=== PATIENT | male | born 1950 | race Caucasian/White ===

== ENCOUNTER → 2020-12-13 | Outpatient (REF) | payer OTHER ==
[~2020-12-13] MED LIST: ASPI-1 PO; LISI10TA22 PO; SIMV40TA20 PO
== END ==
LOC: M LAB REF 18:30
PROVIDERS: ATTEND Family Medicine
DX: Z53.9 Procedure and treatment not carried out, unspecified reason (principal); T83.511A Infection and inflammatory reaction due to indwelling urethral catheter, initial encounter

== ENCOUNTER → 2021-05-22 | Outpatient (REF) | payer OTHER, MEDICAID ==
[2021-05-23 11:58] LABS: BLOOD UREA NITROGEN 14 MG/DL (7-18); CALCIUM LEVEL 9.3 MG/DL (8.8-10.2); CARBON DIOXIDE LEVEL 23 MEQ/L (21-32); CHLORIDE LEVEL 107 MEQ/L (98-107); CREATININE FOR GFR 0.99 MG/DL (0.70-1.30); GLOMERULAR FILTRATION RATE > 60.0 (>49); GLUCOSE, FASTING 90 MG/DL (70-100); NT-PRO BNP 540 PG/ML (<125); POTASSIUM SERUM 4.9 MEQ/L (3.5-5.1); SODIUM LEVEL 138 MEQ/L (136-145)
== END ==
LOC: M SFHCCLAY 15:08
PROVIDERS: ATTEND Family Medicine
DX: R60.0 Localized edema (principal)
CPT/HCPCS: 80048; 83880; G0463

== ENCOUNTER → 2021-08-19 | Outpatient (CLI) | payer OTHER, MEDICAID | LOC: M RAD 13:46 | PROVIDERS: ATTEND Internal Medicine Pulmonary Disease | DX: R91.8 Other nonspecific abnormal finding of lung field (principal) ==

== ENCOUNTER → 2021-11-25 | Outpatient (REF) | payer OTHER, MEDICAID | LOC: M SFHCCLAY 15:46 | PROVIDERS: ATTEND Nurse Practitioner Family | DX: R05.9 Cough, unspecified (principal) ==

== ENCOUNTER → 2021-11-25 | Outpatient (CLI) | payer OTHER, MEDICAID | LOC: M CLY 15:36 | PROVIDERS: ATTEND Nurse Practitioner Family | DX: R06.00 Dyspnea, unspecified (principal) ==

== ENCOUNTER 2022-09-21 11:23 | Inpatient (IN) | payer MEDICARE, MEDICAID ==
[~2022-09-21] VITALS: Ht 182.9 cm; Wt 102.0 kg
[2022-09-21] MEDS ORDERED: ACETAMINOPHEN TAB 650MG DOSE (2X325MG) PO PRN (14:00)
[2022-09-21] MEDS ORDERED: ONDANSETRON 4MG TAB PO PRN (14:00)
[2022-09-21] MEDS: COMBIVENT RESPIMAT 100-20MCG INHALER 4GM INH SCH ×2 (14:00→19:59)
[2022-09-21] MEDS ORDERED: BISACODYL 10MG SUPP PR PRN (14:00)
[2022-09-21 14:15] VITALS: BP 117/84
[2022-09-21] MEDS ORDERED: MM S100C PO (15:09)
[2022-09-21] MEDS ORDERED: ATOR40TA75 PO (15:09)
[2022-09-21] MEDS ORDERED: ACET1TAB55 PO (15:09)
[2022-09-21] MEDS ORDERED: TERB250T91 PO (15:09)
[2022-09-21] MEDS ORDERED: ATRO0.063 INH (15:09)
[2022-09-21] MEDS ORDERED: CLOT1CRE71 TOP (15:09)
[2022-09-21] MEDS ORDERED: VENTAER INH (15:09)
[2022-09-21] MEDS ORDERED: XARE20TA PO (15:09)
[2022-09-21] MEDS ORDERED: ASPI81CH33 PO (15:09)
[2022-09-21] MEDS ORDERED: FOLI1TAB11 PO ×2 (15:09→15:13)
[2022-09-21] MEDS ORDERED: FAMO20TA PO (15:13)
[2022-09-21] MEDS ORDERED: ONDA4TAB6 PO (15:13)
[2022-09-21] MEDS ORDERED: MIDO10TA PO (15:13)
[2022-09-21] MEDS ORDERED: LORA-674 PO (15:13)
[2022-09-21] MEDS ORDERED: BENZ-18 PO (15:16)
[2022-09-21] MEDS ORDERED: traMADol 50 MG TAB PO PRN (15:25)
[2022-09-21] MEDS ORDERED: HOME MED LIST COMPLETE! XX SCH (15:25)
[2022-09-21] MEDS: MIDODRINE 5 MG TAB PO SCH (15:54)
[2022-09-21] MEDS: ACETAMINOPHEN 500 MG TAB PO SCH ×2 (15:54→20:08)
[2022-09-21] MEDS: REMEDY PHYTOPLEX Z-GUARD PASTE 113GM TUBE (FROM STOREROOM PRODUCT) TOP SCH ×2 (16:00→20:24)
[2022-09-21] MEDS: SALIVA SUBSTITUTE(MOUTHKOTE) BTL MT SCH ×2 (17:00→20:09)
[2022-09-21] MEDS ORDERED: NS 1,000 ML IV ONE (17:20)
[2022-09-21] MEDS: MAGIC MOUTHWASH SUSPENSION BTL SSP SCH (17:30)
[2022-09-21] MEDS ORDERED: traZODone 25MG PER 1/2 TABLET PO PRN (17:45)
[2022-09-21 20:00] VITALS: BP 108/70
[2022-09-21] MEDS: RIVAROXABAN 20MG TAB (XARELTO) PO SCH (20:04)
[2022-09-21] MEDS: ATORVASTATIN 20 MG TAB PO SCH (20:06)
[2022-09-21] MEDS: guaiFENesin 200 MG TAB PO SCH (20:06)
[2022-09-21] MEDS: DOCUSATE SODIUM 100MG CAPSULE PO SCH (20:06)
[2022-09-21] MEDS: PANTOPRAZOLE 40MG TAB (PROTONIX) PO SCH (20:06)
[2022-09-21] MEDS: SENNA 8.6 MG TAB (SENOKOT) PO SCH (20:09)
[2022-09-21 20:54] LABS: VENOUS HCO3 23.7 MEQ/L (23.0-27.0); VENOUS O2 SATURATION 73.6 % (60.0-80.0); VENOUS PH 7.449 UNITS (7.330-7.430); VENOUS STANDARD HCO3 24.1 MEQ/L; VENOUS TOTAL CO2 24.8 MEQ/L (24.0-28.0)
[2022-09-21 20:59] LABS: HEMATOCRIT 25.9 % (42.0-52.0); HEMOGLOBIN 8.3 g/dl (13.5-17.5); MEAN CORPUSCULAR HEMOGLOBIN 35.2 pg (27.0-33.0); MEAN CORPUSCULAR VOLUME 109.7 fl (80.0-96.0); PLATELET COUNT, AUTOMATED 181 10^3/uL (150-450); RED BLOOD COUNT 2.36 10^6/uL (4.30-6.10); WHITE BLOOD COUNT 7.4 10^3/uL (4.0-10.0)
[2022-09-21 21:23] LABS: BLOOD UREA NITROGEN 9 MG/DL (9-23); CALCIUM LEVEL 7.2 MG/DL (8.3-10.6); CARBON DIOXIDE LEVEL 23 MMOL/L (20-31); CHLORIDE LEVEL 105 MMOL/L (98-107); CREATININE FOR GFR 0.65 MG/DL (0.70-1.30); GLOMERULAR FILTRATION RATE > 60.0 (>42); GLUCOSE, FASTING 103 MG/DL (74-106); POTASSIUM SERUM 3.5 MMOL/L (3.5-5.1); SODIUM LEVEL 138 MMOL/L (136-145)
[2022-09-21 21:40] LABS: ATYPICAL LYMPH 14 % (0-5); EOSINOPHILS 2 % (0-3); LYMPHOCYTES 26 % (16-44); NEUTROPHILS 56 % (28-66)
[2022-09-21 21:41] LABS: ANISOCYTOSIS 1+; HYPOCHROMASIA 1+
[2022-09-21 21:42] LABS: PLATELET ESTIMATE NORMAL (NORMAL)
[2022-09-22 05:49] LABS: BASO % 0.2 % (0.0-1.0); EOS % 0.4 % (0.0-3.0); HEMATOCRIT 27.3 % (42.0-52.0); HEMOGLOBIN 8.5 g/dl (13.5-17.5); LYMPH # 1.5 10^3/uL (1.5-5.0); LYMPH % 18.4 % (24.0-44.0); MEAN CORPUSCULAR HEMOGLOBIN 34.4 pg (27.0-33.0); MEAN CORPUSCULAR HGB CONC 31.1 g/dl (32.0-36.5); MEAN CORPUSCULAR VOLUME 110.5 fl (80.0-96.0); MONO # 0.5 10^3/uL (0.0-0.8); MONO % 6.2 % (2.0-8.0); NEUTROPHILS % 74.3 % (36.0-66.0); PLATELET COUNT, AUTOMATED 199 10^3/uL (150-450); RED BLOOD COUNT 2.47 10^6/uL (4.30-6.10)
[2022-09-22 05:57] VITALS: BP 113/67
[2022-09-22] MEDS ORDERED: DOXYCYCLINE HYCLATE 100MG TABLET PO SCH (06:00)
[2022-09-22 06:15] LABS: ALBUMIN 2.1 G/DL (3.2-5.2); ALKALINE PHOSPHATASE 70 U/L (46-116); ALT/SGPT 47 U/L (7.0-40); AST/SGOT 30 U/L (<34); BILIRUBIN,TOTAL 0.9 MG/DL (0.3-1.2); BLOOD UREA NITROGEN 9 MG/DL (9-23); CALCIUM LEVEL 7.7 MG/DL (8.3-10.6); CARBON DIOXIDE LEVEL 24 MMOL/L (20-31); CHLORIDE LEVEL 102 MMOL/L (98-107); CREATININE FOR GFR 0.72 MG/DL (0.70-1.30); GLOMERULAR FILTRATION RATE > 60.0 (>42); GLUCOSE, FASTING 90 MG/DL (74-106); POTASSIUM SERUM 3.7 MMOL/L (3.5-5.1); SODIUM LEVEL 135 MMOL/L (136-145); TOTAL PROTEIN 7.4 G/DL (5.7-8.2)
[2022-09-22] MEDS: COMBIVENT RESPIMAT 100-20MCG INHALER 4GM INH SCH ×3 (07:33→20:15)
[2022-09-22] MEDS: LORATADINE 10 MG TAB PO SCH (09:41)
[2022-09-22] MEDS: guaiFENesin 200 MG TAB PO SCH ×2 (09:41→21:00)
[2022-09-22] MEDS: cefTRIAXone SOD 2 GM in D5W MINI-BAG PLUS 50 ML IV SCH (09:41)
[2022-09-22] MEDS: MIDODRINE 5 MG TAB PO SCH ×3 (09:42→16:59)
[2022-09-22] MEDS: ASPIRIN 81MG ENTERIC TABLET PO SCH (09:42)
[2022-09-22] MEDS: DOCUSATE SODIUM 100MG CAPSULE PO SCH ×2 (09:42→21:00)
[2022-09-22] MEDS: FOLIC ACID 1MG TAB PO SCH (09:42)
[2022-09-22] MEDS: PANTOPRAZOLE 40MG TAB (PROTONIX) PO SCH ×2 (09:42→21:00)
[2022-09-22] MEDS: SALIVA SUBSTITUTE(MOUTHKOTE) BTL MT SCH ×4 (09:45→21:54)
[2022-09-22] MEDS: MAGIC MOUTHWASH SUSPENSION BTL SSP SCH ×3 (09:47→17:00)
[2022-09-22] MEDS: ACETAMINOPHEN 500 MG TAB PO SCH ×3 (09:49→21:00)
[2022-09-22] MEDS: REMEDY PHYTOPLEX Z-GUARD PASTE 113GM TUBE (FROM STOREROOM PRODUCT) TOP SCH ×3 (09:49→21:55)
[2022-09-22] MEDS ORDERED: SODIUM CHLORIDE 0.9% INJ 10 ML SYR IV PRN (11:50)
[2022-09-22 14:00] VITALS: BP 130/77
[2022-09-22] MEDS: RIVAROXABAN 20MG TAB (XARELTO) PO SCH (18:09)
[2022-09-22] MEDS: SODIUM CHLORIDE 0.9% INJ 10 ML SYR IV SCH (18:10)
[2022-09-22 20:00] VITALS: BP 143/78
[2022-09-22] MEDS: ATORVASTATIN 20 MG TAB PO SCH (21:00)
[2022-09-22] MEDS ORDERED: ACETAMINOPHEN 1000MG 100ML IV BAG IV ONE (21:00)
[2022-09-22] MEDS: SENNA 8.6 MG TAB (SENOKOT) PO SCH (21:00)
[2022-09-22 21:30] LABS: ABG BASE EXCESS -0.1 (-2.0-2.0); ABG HCO3 22.2 MEQ/L (22.0-26.0); ABG O2 SATURATION 93.9 % (95.0-99.0); ABG PARTIAL PRESSURE O2 67.4 mmHg (75.0-100.0); ABG STANDARD HCO3 24.4 MEQ/L (22.0-26.0); ABG TOTAL CO2 23.1 MEQ/L (23.0-31.0); ABG pH (ARTERIAL) 7.517 UNITS (7.350-7.450)
[2022-09-22 22:03] LABS: BASO % 0.2 % (0.0-1.0); EOS % 0.1 % (0.0-3.0); HEMATOCRIT 26.3 % (42.0-52.0); HEMOGLOBIN 8.7 g/dl (13.5-17.5); LYMPH # 1.4 10^3/uL (1.5-5.0); LYMPH % 16.9 % (24.0-44.0); MEAN CORPUSCULAR HEMOGLOBIN 37.3 pg (27.0-33.0); MEAN CORPUSCULAR HGB CONC 33.1 g/dl (32.0-36.5); MEAN CORPUSCULAR VOLUME 112.9 fl (80.0-96.0); MONO # 0.5 10^3/uL (0.0-0.8); MONO % 6.5 % (2.0-8.0); NEUTROPHILS # 6.2 10^3/uL (1.5-8.5); NEUTROPHILS % 75.8 % (36.0-66.0); PLATELET COUNT, AUTOMATED 195 10^3/uL (150-450); RED BLOOD COUNT 2.33 10^6/uL (4.30-6.10); WHITE BLOOD COUNT 8.2 10^3/uL (4.0-10.0)
[2022-09-22 22:23] LABS: BLOOD UREA NITROGEN 10 MG/DL (9-23); CALCIUM LEVEL 7.9 MG/DL (8.3-10.6); CARBON DIOXIDE LEVEL 23 MMOL/L (20-31); CHLORIDE LEVEL 103 MMOL/L (98-107); CREATININE FOR GFR 0.78 MG/DL (0.70-1.30); GLOMERULAR FILTRATION RATE > 60.0 (>42); GLUCOSE, FASTING 99 MG/DL (74-106); SODIUM LEVEL 134 MMOL/L (136-145)
[2022-09-22 23:00] VITALS: BP 105/66
[2022-09-22 23:50] VITALS: BP 123/68
[2022-09-23] MEDS ORDERED: NS 1,000 ML IV SCH
[2022-09-23 01:21] LABS: RSV AMPLIFICATION NEGATIVE (NEGATIVE)
[2022-09-23 04:32] LABS: HEMATOCRIT 25.1 % (42.0-52.0); HEMOGLOBIN 8.1 g/dl (13.5-17.5); MEAN CORPUSCULAR HGB CONC 32.3 g/dl (32.0-36.5); MEAN CORPUSCULAR VOLUME 111.6 fl (80.0-96.0); PLATELET COUNT, AUTOMATED 202 10^3/uL (150-450); RED BLOOD COUNT 2.25 10^6/uL (4.30-6.10); WHITE BLOOD COUNT 7.7 10^3/uL (4.0-10.0)
[2022-09-23 04:57] LABS: BLOOD UREA NITROGEN 9 MG/DL (9-23); CALCIUM LEVEL 7.6 MG/DL (8.3-10.6); CARBON DIOXIDE LEVEL 20 MMOL/L (20-31); CHLORIDE LEVEL 103 MMOL/L (98-107); CREATININE FOR GFR 0.78 MG/DL (0.70-1.30); GLOMERULAR FILTRATION RATE > 60.0 (>42); GLUCOSE, FASTING 85 MG/DL (74-106); POTASSIUM SERUM 4.1 MMOL/L (3.5-5.1); SODIUM LEVEL 134 MMOL/L (136-145)
[2022-09-23 05:04] LABS: ATYPICAL LYMPH 15 % (0-5); LYMPHOCYTES 16 % (16-44); MONOCYTES 7 % (0-5); NEUTROPHILS 62 % (28-66)
[2022-09-23 05:05] LABS: PLATELET ESTIMATE NORMAL (NORMAL)
[2022-09-23] MEDS: SODIUM CHLORIDE 0.9% INJ 10 ML SYR IV SCH (05:33)
[2022-09-23 06:00] VITALS: BP 106/60
[2022-09-23] MEDS ORDERED: ACETAMINOPHEN 1000MG 100ML IV BAG IV ONE (06:00)
[2022-09-23] MEDS: COMBIVENT RESPIMAT 100-20MCG INHALER 4GM INH SCH (07:23)
[2022-09-23 07:52] VITALS: BP 108/65
[2022-09-23] MEDS: ACETAMINOPHEN 500 MG TAB PO SCH (08:27)
[2022-09-23] MEDS: MIDODRINE 5 MG TAB PO SCH ×2 (08:30→14:05)
[2022-09-23] MEDS: PANTOPRAZOLE 40MG TAB (PROTONIX) PO SCH (08:32)
[2022-09-23] MEDS: ASPIRIN 81MG ENTERIC TABLET PO SCH (08:33)
[2022-09-23] MEDS: MAGIC MOUTHWASH SUSPENSION BTL SSP SCH ×2 (08:33→14:06)
[2022-09-23] MEDS: guaiFENesin 200 MG TAB PO SCH (08:33)
[2022-09-23] MEDS: LORATADINE 10 MG TAB PO SCH (08:33)
[2022-09-23] MEDS: DOCUSATE SODIUM 100MG CAPSULE PO SCH (08:33)
[2022-09-23] MEDS: SALIVA SUBSTITUTE(MOUTHKOTE) BTL MT SCH ×2 (08:33→14:06)
[2022-09-23] MEDS: FOLIC ACID 1MG TAB PO SCH (08:34)
[2022-09-23] MEDS: cefTRIAXone SOD 2 GM in D5W MINI-BAG PLUS 50 ML IV SCH (08:34)
[2022-09-23] MEDS: REMEDY PHYTOPLEX Z-GUARD PASTE 113GM TUBE (FROM STOREROOM PRODUCT) TOP SCH (08:35)
[2022-09-23] MEDS ORDERED: ISOVUE-370 76% 100ML VIAL As Ordered ONE (10:54)
[2022-09-24 16:10] LABS: BODY FLUID CULTURE Not indicated. (.); LEGIONELLA ANTIGEN URINE Negative (Negative); ORGANISM ID Not indicated. (.); SPECIMEN SOURCE Urine (.); URINE STREP PNEUMONIAE ANTIGEN Negative (Negative)
== END 2022-09-23 14:30 | disposition short-term general hospital (02) | DRG 57 ==
LOC: M PM&R 14:11
PROVIDERS: ADMIT Physical Medicine & Rehabilitation; ATTEND Physical Medicine & Rehabilitation
DX: I69.354 Hemiplegia and hemiparesis following cerebral infarction affecting left non-dominant side (principal); I38 Endocarditis, valve unspecified; E87.1 Hypo-osmolality and hyponatremia; I48.0 Paroxysmal atrial fibrillation; I10 Essential (primary) hypertension; E78.5 Hyperlipidemia, unspecified; D63.8 Anemia in other chronic diseases classified elsewhere; J44.9 Chronic obstructive pulmonary disease, unspecified; I25.10 Atherosclerotic heart disease of native coronary artery without angina pectoris; Z74.09 Other reduced mobility; R50.9 Fever, unspecified; E83.51 Hypocalcemia; Z74.1 Need for assistance with personal care; R51.9 Headache, unspecified; R53.81 Other malaise; Z79.01 Long term (current) use of anticoagulants; Z79.82 Long term (current) use of aspirin; Z79.899 Other long term (current) drug therapy; Z95.0 Presence of cardiac pacemaker; I25.2 Old myocardial infarction; Z86.16 Personal history of COVID-19; Z90.49 Acquired absence of other specified parts of digestive tract; Z87.891 Personal history of nicotine dependence; Z86.718 Personal history of other venous thrombosis and embolism

== ENCOUNTER 2022-09-23 12:38 | Inpatient (IN) | payer MEDICARE, MEDICAID ==
[~2022-09-23] VITALS: Ht 182.9 cm; Wt 98.4 kg
[~2022-09-23 12:38] MED LIST changes: +ACET1TAB55 PO; +ASPI81CH33 PO; +ATOR40TA75 PO; +ATRO0.063 INH; +BENZ-18 PO; +CLOT1CRE71 TOP; +FAMO20TA PO; +FOLI1TAB11 PO; +LORA-674 PO; +MIDO10TA PO; +MM S100C PO; +ONDA4TAB6 PO; +TERB250T91 PO; +VENTAER INH; +XARE20TA PO
[2022-09-23 15:00] VITALS: BP 136/79
[2022-09-23] MEDS ORDERED: HOME MED LIST COMPLETE! XX SCH (15:50)
[2022-09-23 16:00] VITALS: BP 119/83
[2022-09-23] MEDS ORDERED: ALBUTEROL 90 MCG/ACT 8GM HFA INHALER INH PRN (16:40)
[2022-09-23] MEDS ORDERED: BENZONATATE 100MG CAPSULE PO PRN (16:40)
[2022-09-23] MEDS ORDERED: ONDANSETRON 4MG ORAL DISINTEGRATING TAB PO PRN (16:40)
[2022-09-23 17:11] LABS: PERCENT SATURATION 65.9 % (19.7-50.0)
[2022-09-23 17:13] LABS: FERRITIN 508.3 NG/ML (10.5-307.3)
[2022-09-23 17:18] LABS: FOLATE 21.79 NG/ML (>5.4)
[2022-09-23] MEDS: MIDODRINE 5 MG TAB PO SCH (17:37)
[2022-09-23] MEDS ORDERED: RIVAROXABAN 20MG TAB (XARELTO) PO SCH (18:00)
[2022-09-23] MEDS: IPRATROPIUM HFA INHALER 12.9 GRAMS (ATROVENT HFA) INH SCH (19:08)
[2022-09-23 20:00] VITALS: BP 120/60
[2022-09-23] MEDS: FAMOTIDINE 20 MG TAB PO SCH (20:11)
[2022-09-23] MEDS: ATORVASTATIN 20 MG TAB PO SCH (20:11)
[2022-09-23] MEDS: ACETAMINOPHEN 325 MG TAB PO PRN (20:12)
[2022-09-24] VITALS (7 sets, daily range): BP systolic 99–129; BP diastolic 58–81
[2022-09-24] MEDS: IPRATROPIUM HFA INHALER 12.9 GRAMS (ATROVENT HFA) INH SCH ×7 (04:00→23:25)
[2022-09-24 05:31] LABS: BASO % 0.4 % (0.0-1.0); EOS # 0.1 10^3/uL (0.0-0.5); EOS % 1.2 % (0.0-3.0); HEMATOCRIT 25.9 % (42.0-52.0); HEMOGLOBIN 8.4 g/dl (13.5-17.5); LYMPH # 1.3 10^3/uL (1.5-5.0); LYMPH % 16.6 % (24.0-44.0); MEAN CORPUSCULAR HEMOGLOBIN 35.4 pg (27.0-33.0); MEAN CORPUSCULAR HGB CONC 32.4 g/dl (32.0-36.5); MEAN CORPUSCULAR VOLUME 109.3 fl (80.0-96.0); MONO # 0.5 10^3/uL (0.0-0.8); NEUTROPHILS # 5.8 10^3/uL (1.5-8.5); NEUTROPHILS % 75.4 % (36.0-66.0); PLATELET COUNT, AUTOMATED 206 10^3/uL (150-450); RED BLOOD COUNT 2.37 10^6/uL (4.30-6.10); WHITE BLOOD COUNT 7.6 10^3/uL (4.0-10.0)
[2022-09-24 06:27] LABS: ALKALINE PHOSPHATASE 63 U/L (46-116); ALT/SGPT 48 U/L (7.0-40); AST/SGOT 43 U/L (<34); BILIRUBIN,TOTAL 0.8 MG/DL (0.3-1.2); BLOOD UREA NITROGEN 9 MG/DL (9-23); CALCIUM LEVEL 7.9 MG/DL (8.3-10.6); CARBON DIOXIDE LEVEL 23 MMOL/L (20-31); CHLORIDE LEVEL 104 MMOL/L (98-107); CREATININE FOR GFR 0.72 MG/DL (0.70-1.30); GLOMERULAR FILTRATION RATE > 60.0 (>42); GLUCOSE, FASTING 85 MG/DL (74-106); MAGNESIUM LEVEL 1.7 MG/DL (1.8-2.4); POTASSIUM SERUM 3.8 MMOL/L (3.5-5.1); SODIUM LEVEL 135 MMOL/L (136-145)
[2022-09-24] MEDS: MAG SULF 1GM/100ML (MAG RUN) 1 GM in IV 1 EA IV SCH ×2 (08:36→09:00)
[2022-09-24] MEDS: cefTRIAXone SOD 2 GM in D5W MINI-BAG PLUS 50 ML IV SCH (08:36)
[2022-09-24] MEDS: LORATADINE 10 MG TAB PO SCH (08:37)
[2022-09-24] MEDS: FOLIC ACID 1MG TAB PO SCH (08:38)
[2022-09-24] MEDS: FAMOTIDINE 20 MG TAB PO SCH ×2 (08:38→20:04)
[2022-09-24] MEDS: MIDODRINE 5 MG TAB PO SCH ×3 (08:38→16:48)
[2022-09-24] MEDS: DOCUSATE SODIUM 100MG CAPSULE PO SCH (08:38)
[2022-09-24] MEDS ORDERED: ASPIRIN 81MG CHEW TABLET PO SCH (09:00)
[2022-09-24] MEDS: ACETAMINOPHEN 325 MG TAB PO PRN (12:19)
[2022-09-24] MEDS: ENOXAPARIN 100MG/1ML SYRINGE (J1650 PER 10MG) SC SCH ×2 (16:49→18:12)
[2022-09-24] MEDS ORDERED: ISOVUE-370 76% 100ML VIAL As Ordered ONE (18:03)
[2022-09-24] MEDS: ATORVASTATIN 20 MG TAB PO SCH (20:04)
[2022-09-24] MEDS: DOXYCYCLINE HYCLATE 100MG TABLET PO SCH (23:21)
[2022-09-25] VITALS (8 sets, daily range): BP systolic 103–142; BP diastolic 60–88
[2022-09-25] MEDS: IPRATROPIUM HFA INHALER 12.9 GRAMS (ATROVENT HFA) INH SCH ×6 (03:37→23:28)
[2022-09-25] MEDS: ENOXAPARIN 100MG/1ML SYRINGE (J1650 PER 10MG) SC SCH ×2 (05:14→16:57)
[2022-09-25 07:30] LABS: BASO % 0.4 % (0.0-1.0); EOS % 0.2 % (0.0-3.0); HEMATOCRIT 26.2 % (42.0-52.0); HEMOGLOBIN 9.4 g/dl (13.5-17.5); LYMPH # 1.5 10^3/uL (1.5-5.0); LYMPH % 18.3 % (24.0-44.0); MEAN CORPUSCULAR HEMOGLOBIN 39.7 pg (27.0-33.0); MEAN CORPUSCULAR HGB CONC 35.9 g/dl (32.0-36.5); MEAN CORPUSCULAR VOLUME 110.5 fl (80.0-96.0); MONO # 0.5 10^3/uL (0.0-0.8); MONO % 6.7 % (2.0-8.0); NEUTROPHILS % 73.8 % (36.0-66.0); PLATELET COUNT, AUTOMATED 223 10^3/uL (150-450); RED BLOOD COUNT 2.37 10^6/uL (4.30-6.10); WHITE BLOOD COUNT 8.1 10^3/uL (4.0-10.0)
[2022-09-25 08:18] LABS: ERYTHROCYTE SEDIMENTATION RATE 52 mm/hr (0-20)
[2022-09-25] MEDS: FOLIC ACID 1MG TAB PO SCH (08:18)
[2022-09-25] MEDS: cefTRIAXone SOD 2 GM in D5W MINI-BAG PLUS 50 ML IV SCH (08:18)
[2022-09-25] MEDS: FAMOTIDINE 20 MG TAB PO SCH ×2 (08:18→21:58)
[2022-09-25] MEDS: DOXYCYCLINE HYCLATE 100MG TABLET PO SCH ×2 (08:19→21:58)
[2022-09-25] MEDS: MIDODRINE 5 MG TAB PO SCH ×4 (08:19→16:57)
[2022-09-25] MEDS: LORATADINE 10 MG TAB PO SCH (08:19)
[2022-09-25 08:22] LABS: BLOOD UREA NITROGEN 6 MG/DL (9-23); CALCIUM LEVEL 7.7 MG/DL (8.3-10.6); CARBON DIOXIDE LEVEL 22 MMOL/L (20-31); CHLORIDE LEVEL 102 MMOL/L (98-107); CREATININE FOR GFR 0.64 MG/DL (0.70-1.30); GLOMERULAR FILTRATION RATE > 60.0 (>42); GLUCOSE, FASTING 92 MG/DL (74-106); MAGNESIUM LEVEL 1.9 MG/DL (1.8-2.4); POTASSIUM SERUM 4.2 MMOL/L (3.5-5.1); SODIUM LEVEL 133 MMOL/L (136-145)
[2022-09-25] MEDS: DOCUSATE SODIUM 100MG CAPSULE PO SCH (09:00)
[2022-09-25] MEDS: ACETAMINOPHEN 325 MG TAB PO PRN (11:11)
[2022-09-25] MEDS: ATORVASTATIN 20 MG TAB PO SCH (21:58)
[2022-09-26] MEDS: IPRATROPIUM HFA INHALER 12.9 GRAMS (ATROVENT HFA) INH SCH ×2 (04:00→07:36)
[2022-09-26 04:13] VITALS: BP 119/75
[2022-09-26] MEDS: ENOXAPARIN 100MG/1ML SYRINGE (J1650 PER 10MG) SC SCH (05:43)
[2022-09-26 08:00] VITALS: BP 98/55
== END 2022-09-26 08:54 | disposition short-term general hospital (02) | DRG 288 ==
LOC: M ICU 12:39 → M PCU 09-24 09:30
PROVIDERS: ADMIT Internal Medicine; ATTEND Internal Medicine
PROC: B246ZZZ Ultrasonography of Right and Left Heart (ICD-10-PCS; principal; 2022-09-23)
DX: I33.0 Acute and subacute infective endocarditis (principal); G93.41 Metabolic encephalopathy; G93.6 Cerebral edema; J18.9 Pneumonia, unspecified organism; I69.354 Hemiplegia and hemiparesis following cerebral infarction affecting left non-dominant side; J96.11 Chronic respiratory failure with hypoxia; I48.20 Chronic atrial fibrillation, unspecified; I48.0 Paroxysmal atrial fibrillation; I25.10 Atherosclerotic heart disease of native coronary artery without angina pectoris; J44.9 Chronic obstructive pulmonary disease, unspecified; E78.5 Hyperlipidemia, unspecified; I10 Essential (primary) hypertension; D53.9 Nutritional anemia, unspecified; E78.00 Pure hypercholesterolemia, unspecified; I95.9 Hypotension, unspecified; I25.2 Old myocardial infarction; Z86.718 Personal history of other venous thrombosis and embolism; Z95.0 Presence of cardiac pacemaker; Z87.891 Personal history of nicotine dependence; Z79.82 Long term (current) use of aspirin; Z95.5 Presence of coronary angioplasty implant and graft; Z79.01 Long term (current) use of anticoagulants; Z79.899 Other long term (current) drug therapy

== ENCOUNTER → 2022-10-14 | Outpatient (REF) | payer MEDICARE, MEDICAID ==
[2022-10-14 17:52] LABS: ALBUMIN 2.6 G/DL (3.2-5.2); ALKALINE PHOSPHATASE 98 U/L (46-116); ALT/SGPT 31 U/L (7.0-40); AST/SGOT 28 U/L (<34); BILIRUBIN,TOTAL 0.9 MG/DL (0.3-1.2); BLOOD UREA NITROGEN 7 MG/DL (9-23); CALCIUM LEVEL 8.7 MG/DL (8.3-10.6); CARBON DIOXIDE LEVEL 21 MMOL/L (20-31); CHLORIDE LEVEL 103 MMOL/L (98-107); CREATININE FOR GFR 0.78 MG/DL (0.70-1.30); GLOMERULAR FILTRATION RATE > 60.0 (>42); GLUCOSE, FASTING 84 MG/DL (74-106); POTASSIUM SERUM 4.1 MMOL/L (3.5-5.1); SODIUM LEVEL 135 MMOL/L (136-145); TOTAL PROTEIN 8.4 G/DL (5.7-8.2)
[2022-10-14 18:10] LABS: BASO % 0.4 % (0.0-1.0); EOS # 0.1 10^3/uL (0.0-0.5); EOS % 1.2 % (0.0-3.0); HEMATOCRIT 34.6 % (42.0-52.0); LYMPH # 1.7 10^3/uL (1.5-5.0); LYMPH % 25.3 % (24.0-44.0); MEAN CORPUSCULAR HEMOGLOBIN 34.7 pg (27.0-33.0); MEAN CORPUSCULAR HGB CONC 30.9 g/dl (32.0-36.5); MEAN CORPUSCULAR VOLUME 112.3 fl (80.0-96.0); MONO # 0.5 10^3/uL (0.0-0.8); MONO % 7.6 % (2.0-8.0); NEUTROPHILS # 4.4 10^3/uL (1.5-8.5); NEUTROPHILS % 65.1 % (36.0-66.0); PLATELET COUNT, AUTOMATED 217 10^3/uL (150-450); RED BLOOD COUNT 3.08 10^6/uL (4.30-6.10); WHITE BLOOD COUNT 6.8 10^3/uL (4.0-10.0)
[2022-10-14 18:13] LABS: HEMOGLOBIN 10.7 g/dl (13.5-17.5)
== END ==
LOC: M SFHCCLAY 14:54
PROVIDERS: ATTEND Nurse Practitioner Family
DX: I33.0 Acute and subacute infective endocarditis (principal); I95.9 Hypotension, unspecified

== ENCOUNTER → 2023-08-11 | Outpatient (CLI) | payer MEDICARE, MEDICAID ==
[~2023-08-11] MED LIST changes: +LORA-1041 PO; -LORA-674 PO
== END ==
LOC: M CLY 13:43
PROVIDERS: ATTEND Physician Assistant
DX: I27.20 Pulmonary hypertension, unspecified (principal)

== ENCOUNTER → 2023-08-11 | Outpatient (CLI) | payer MEDICARE, MEDICAID | LOC: M CLY 14:25 | PROVIDERS: ATTEND Physician Assistant | DX: B34.9 Viral infection, unspecified (principal) ==

== ENCOUNTER → 2024-01-13 | Outpatient (REF) | payer MEDICARE, MEDICAID ==
[~2024-01-13] MED LIST changes: +ONDA-282 PO; -ONDA4TAB6 PO
[2024-01-13 17:53] LABS: ALBUMIN 3.5 G/DL (3.2-5.2); ALKALINE PHOSPHATASE 113 U/L (46-116); ALT/SGPT 27 U/L (7.0-40); AST/SGOT 25 U/L (<34); BILIRUBIN,TOTAL 2.9 MG/DL (0.3-1.2); BLOOD UREA NITROGEN 17 MG/DL (9-23); CALCIUM LEVEL 9.3 MG/DL (8.3-10.6); CARBON DIOXIDE LEVEL 21 MMOL/L (20-31); CHLORIDE LEVEL 109 MMOL/L (98-107); CHOLESTEROL LEVEL 110 MG/DL (<200); CHOLESTEROL RISK RATIO 4.58 (<5); CREATININE FOR GFR 0.95 MG/DL (0.70-1.30); GLOMERULAR FILTRATION RATE > 60.0 (>42); GLUCOSE, FASTING 84 MG/DL (74-106); LDL CHOLESTEROL 52.2 MG/DL (<100); POTASSIUM SERUM 4.5 MMOL/L (3.5-5.1); SODIUM LEVEL 138 MMOL/L (136-145); TOTAL PROTEIN 8.1 G/DL (5.7-8.2); TRIGLYCERIDES LEVEL 169 MG/DL (<150)
[2024-01-13 17:58] LABS: BASO % 0.4 % (0.0-1.0); EOS % 0.5 % (0.0-3.0); HEMATOCRIT 39.7 % (42.0-52.0); HEMOGLOBIN 13.3 g/dl (13.5-17.5); LYMPH # 2.5 10^3/uL (1.5-5.0); MEAN CORPUSCULAR HEMOGLOBIN 35.8 pg (27.0-33.0); MONO # 0.7 10^3/uL (0.0-0.8); MONO % 9.1 % (2.0-8.0); NEUTROPHILS # 4.8 10^3/uL (1.5-8.5); NEUTROPHILS % 58.8 % (36.0-66.0); PLATELET COUNT, AUTOMATED 174 10^3/uL (150-450); RED BLOOD COUNT 3.71 10^6/uL (4.30-6.10); WHITE BLOOD COUNT 8.2 10^3/uL (4.0-10.0)
[2024-01-13 17:59] LABS: MEAN CORPUSCULAR HGB CONC 33.5 g/dl (32.0-36.5)
== END ==
LOC: M SFHCCLAY 14:00
PROVIDERS: ATTEND Nurse Practitioner Family
DX: I11.9 Hypertensive heart disease without heart failure (principal); E78.5 Hyperlipidemia, unspecified; Z86.73 Personal history of transient ischemic attack (TIA), and cerebral infarction without residual deficits; R41.3 Other amnesia

== ENCOUNTER → 2025-03-23 | Outpatient (REF) | payer MEDICARE, MEDICAID ==
[~2025-03-23] MED LIST changes: -MIDO10TA PO; +MIDO10TA3 PO
[2025-03-23 19:06] LABS: ALT/SGPT 25 U/L (7.0-40); AST/SGOT 28 U/L (<34); CALCIUM LEVEL 9.0 MG/DL (8.3-10.6); CARBON DIOXIDE LEVEL 23 MMOL/L (20-31); CHLORIDE LEVEL 110 MMOL/L (98-107); CHOLESTEROL LEVEL 104 MG/DL (<200); CHOLESTEROL RISK RATIO 3.82 (<5); CREATININE FOR GFR 0.90 MG/DL (0.70-1.30); GLOMERULAR FILTRATION RATE > 90.0 (>42); LDL CHOLESTEROL 50.8 MG/DL (<100); NON-HDL-C 76.8 MG/DL; POTASSIUM SERUM 4.3 MMOL/L (3.5-5.1); SODIUM LEVEL 143 MMOL/L (136-145); TRIGLYCERIDES LEVEL 130 MG/DL (<150)
[2025-03-23 19:12] LABS: ESTIMATED AVERAGE GLUCOSE 111.0 MG/DL (60-110)
== END ==
LOC: M SFHCCLAY 15:02
PROVIDERS: ATTEND Nurse Practitioner Family
DX: I11.9 Hypertensive heart disease without heart failure (principal); E78.5 Hyperlipidemia, unspecified; Z86.73 Personal history of transient ischemic attack (TIA), and cerebral infarction without residual deficits; R41.3 Other amnesia; R06.02 Shortness of breath

== ENCOUNTER → 2025-04-17 | Outpatient (CLI) | payer MEDICARE, MEDICAID | LOC: M WUC 11:56 | PROVIDERS: ATTEND Nurse Practitioner Family | DX: R06.00 Dyspnea, unspecified (principal); J84.9 Interstitial pulmonary disease, unspecified ==

== ENCOUNTER → 2025-05-10 | Outpatient (CLI) | payer MEDICARE, MEDICAID | LOC: M CLY 14:26 | PROVIDERS: ATTEND Physician Assistant | DX: R91.8 Other nonspecific abnormal finding of lung field (principal); R05.1 Acute cough; R06.2 Wheezing; R06.02 Shortness of breath ==

== ENCOUNTER → 2025-06-05 | Outpatient (REF) | payer MEDICARE, MEDICAID ==
[2025-06-05 18:03] LABS: BASO # 0.0 10^3/uL (0.0-0.2); BASO % 0.2 % (0.0-1.0); EOS # 0.0 10^3/uL (0.0-0.5); EOS % 0.1 % (0.0-3.0); LYMPH # 1.2 10^3/uL (1.5-5.0); LYMPH % 9.9 % (24.0-44.0); MONO # 0.5 10^3/uL (0.0-0.8); MONO % 3.9 % (2.0-8.0); NEUTROPHILS # 10.5 10^3/uL (1.5-8.5); NEUTROPHILS % 85.1 % (36.0-66.0); PLATELET COUNT, AUTOMATED 259 10^3/uL (150-450)
[2025-06-05 18:20] LABS: ALT/SGPT 253.0 U/L (7.0-40); AST/SGOT 136.0 U/L (<34); CALCIUM LEVEL 8.2 MG/DL (8.3-10.6); CARBON DIOXIDE LEVEL 25.0 MMOL/L (20-31); CHLORIDE LEVEL 98.0 MMOL/L (98-107); CREATININE FOR GFR 1.17 MG/DL (0.70-1.30); GLOMERULAR FILTRATION RATE 65.8 (>42); POTASSIUM SERUM 4.4 MMOL/L (3.5-5.1); SODIUM LEVEL 135.0 MMOL/L (136-145)
== END ==
LOC: M SFHCCLAY 14:40
PROVIDERS: ATTEND Nurse Practitioner Family
DX: L03.114 Cellulitis of left upper limb (principal); J18.9 Pneumonia, unspecified organism